=== PATIENT | male | born 1960 | race Caucasian/White ===

== ENCOUNTER 2019-08-18 20:19 | Emergency (ER) | payer MEDICAID ==
[~2019-08-18] VITALS: Ht 177.8 cm; Wt 90.9 kg
[~2019-08-18 20:19] MED LIST: ALBU18HF2 IH; ALLO100T PO; ASPI-1265 PO; CLON-528 PO; COL100C PO; CYCL-394 PO; DES150T PO; GABA-338 PO; GLIP-127 PO; LANTUS SQ; LISI-222 PO; METF1000 PO; METO-539 PO; MOME13HF IH; NITR0.4T51 SL; OLAN5TAB3 PO; OMEG500C PO; OMEP-84 PO; OXYC-147 PO; SUCR1ORA15 PO; TICA90TA2 PO; ZAFI10TA5 PO; ZOC40T PO; ZOF4T PO
--- NOTE | 2019-08-18 20:26 | NUR ---
PATIENTS CONTACT # KEILA LEE "COUSIN" PATIENT LIVES WITH COUSIN
[2019-08-18 21:01] LABS: BASOPHILS % (AUTO) 0.5 % (0-1); EOSINOPHILS % (AUTO) 0 % (0-6); HEMATOCRIT 43.6 % (42.0-52.0); HEMOGLOBIN 15.1 g/dl (14.0-17.9); LYMPHOCYTES # (AUTO) 1.4 X10'3 (1.1-4.8); LYMPHOCYTES % (AUTO) 18.7 % (21-51); MEAN CORPUSCULAR HEMOGLOBIN 28.7 PG (27.0-31.0); MEAN CORPUSCULAR HGB CONC 34.7 g/dL (33.0-36.5); MEAN CORPUSCULAR VOLUME 82.8 FL (78-98); MEAN PLATELET VOLUME 7.8 FL (7.4-10.4); MONOCYTES # (AUTO) 0.5 X10'3 (0-0.9); NEUTROPHILS # (AUTO) 5.7 X10'3 (1.8-7.7); NEUTROPHILS % (AUTO) 73.8 % (42-75); PLATELET COUNT 210 X10'3 (140-440); RED BLOOD COUNT 5.26 X10'6 (4.70-6.10); RED CELL DISTRIBUTION WIDTH 13.5 % (11.5-14.5); WHITE BLOOD COUNT 7.7 X10'3 (4.5-11.0)
[2019-08-18 21:11] LABS: ALANINE AMINOTRANSFERASE 28 U/L (12-78); ALBUMIN 3.8 G/DL (3.4-5.0); ALBUMIN/GLOBULIN RATIO 1.3 (1.1-1.5); ALKALINE PHOSPHATASE 79 IU/L (46-116); ANION GAP 11 (8-16); ASPARTATE AMINO TRANSFERASE 20 U/L (10-37); BILIRUBIN,TOTAL 0.4 MG/DL (0.1-1.0); BLOOD UREA NITROGEN 8 MG/DL (7-18); BUN/CREATININE RATIO 9.3 (5.4-32.0); CALCIUM 8.2 MG/DL (8.5-10.1); CHLORIDE 93 MMOL/L (99-107); CREATININE 0.86 MG/DL (0.60-1.10); GLUCOSE 185 MG/DL (70-104); POTASSIUM 4.1 MMOL/L (3.5-5.1); SODIUM 126 MMOL/L (135-145); TOTAL CARBON DIOXIDE 22.2 MMOL/L (24-32); TOTAL PROTEIN 6.8 G/DL (6.4-8.2); eGFR 90 ML/MIN
[2019-08-18 21:20] LABS: ETHANOL < 0.010 GM/DL (0.0-0.010)
[2019-08-18] MEDS ORDERED: normal saline 1000ML IV soln IVB ONE (21:20)
[2019-08-18] MEDS ORDERED: OLAN10TA21 PO (22:23)
[2019-08-18] MEDS ORDERED: METO-384 PO (22:28)
[2019-08-18] MEDS ORDERED: PANT-47 PO (22:29)
[2019-08-18] MEDS ORDERED: TRAZ-256 PO (22:29)
[2019-08-18] MEDS ORDERED: PRIM250T8 CORPAK ×2 (22:31→22:32)
[2019-08-18] MEDS ORDERED: PRIM50TA27 PO (22:32)
[2019-08-18 22:36] LABS: CLARITY,URINE CLEAR (Clear); COLOR,URINE YELLOW (Yellow); GLUCOSE, URINE 250 mg/dl (Neg); KETONES,URINE NEGATIVE (Neg); LEUKOCYTE ESTERASE ,URINE NEGATIVE (Neg); NITRITES, URINE NEGATIVE (Neg); OCCULT BLOOD,URINE NEGATIVE (Neg); PROTEIN,URINE NEGATIVE (Neg); UROBILINOGEN,URINE 0.2 E.U/dL (0.2-1.0)
[2019-08-18 22:41] LABS: UA COLLECTION TYPE CLN CATCH MIDSTREAM
[2019-08-18 22:44] LABS: URINE AMPHETAMINE SCREEN NEGATIVE (Neg); URINE BARBITUATE SCREEN POSITIVE (Neg); URINE BENZODIAZEPINES SCREEN NEGATIVE (Neg); URINE CANNABINOID SCREEN POSITIVE (Neg); URINE COCAINE SCREEN NEGATIVE (Neg); URINE METHADONE SCREEN NEGATIVE (Neg); URINE OPIATE SCREEN NEGATIVE (Neg); URINE PHENCYCLIDINE SCREEN NEGATIVE (Neg)
[2019-08-18] MEDS ORDERED: nitroGLYCERIN 0.4mg SUBLingual tab SL PRN (23:05)
[2019-08-18] MEDS ORDERED: cyclobenzaprine 10mg tablet PO PRN (23:05)
[2019-08-18] MEDS ORDERED: allopurinol 300 MG tablet PO SCH (23:19)
[2019-08-18] MEDS ORDERED: traZODone 50mg tablet PO SCH (23:20)
[2019-08-18] MEDS ORDERED: primidone 50mg tablet PO SCH (23:22)
[2019-08-18] MEDS ORDERED: Melatonin 3mg tablet PO ONE (23:25)
[2019-08-18] MEDS ORDERED: Melatonin 3mg tablet PO SCH (23:25)
[2019-08-18] MEDS ORDERED: metoprolol succinate 25mg (24-HOUR) SR. Tablet PO SCH (23:27)
[2019-08-18] MEDS ORDERED: olanzapine 10mg tablet PO SCH (23:29)
[2019-08-18] MEDS ORDERED: aspirin 81mg tab.chew PO ONE (23:35)
[2019-08-18] MEDS ORDERED: primidone 250mg tablet PO SCH (23:35)
[2019-08-18] MEDS ORDERED: metFORMIN 500mg tablet PO ONE (23:35)
[2019-08-18] MEDS ORDERED: atorvastatin 20mg tablet PO ONE (23:35)
[2019-08-18] MEDS ORDERED: lisinopril 5mg tablet PO ONE (23:35)
[2019-08-18] MEDS ORDERED: olanzapine 10mg tablet PO ONE (23:35)
[2019-08-18] MEDS ORDERED: gabapentin 300mg capsule PO ONE (23:35)
[2019-08-18] MEDS ORDERED: pantoprazole 40mg Tablet.DR PO ONE (23:35)
[2019-08-18] MEDS ORDERED: loratadine 10mg tablet PO ONE (23:35)
--- NOTE | 2019-08-19 00:27 | NUR ---
relieving RN for break, pt is resting quietly on gurney, resp even and unlabored
[2019-08-19] MEDS ORDERED: mag hydrox/Alum hydrox/simeth 30ml oral suspension PO ONE (00:55)
--- NOTE | 2019-08-19 01:26 | NUR ---
pt is lying in bed awake, somewhat restless. no s/s of distress noted.
[2019-08-19 01:31] LABS: ALBUMIN 3.7 G/DL (3.4-5.0); ANION GAP 7 (8-16); BLOOD UREA NITROGEN 8 MG/DL (7-18); BUN/CREATININE RATIO 10.5 (5.4-32.0); CALCIUM 8.4 MG/DL (8.5-10.1); CHLORIDE 97 MMOL/L (99-107); CREATININE 0.76 MG/DL (0.60-1.10); GLUCOSE 151 MG/DL (70-104); SODIUM 130 MMOL/L (135-145); TOTAL CARBON DIOXIDE 25.8 MMOL/L (24-32); eGFR > 90 ML/MIN
--- NOTE | 2019-08-19 02:27 | NUR ---
Pt is sleeping, no s/s of distress noted. rr unlabored.
[2019-08-19] MEDS ORDERED: albuterol 2.5 MG/3 ML nebule NEB SCH (03:00)
--- NOTE | 2019-08-19 03:41 | NUR ---
Pt is sleeping, no s/s of distress noted. rr unlabored.
--- NOTE | 2019-08-19 05:10 | NUR ---
Pt continues to sleep, rr unlabored, no s/s of distress noted.
--- NOTE | 2019-08-19 06:48 | NUR ---
back in bed
--- NOTE | 2019-08-19 07:04 | NUR ---
Patient sitting up in bed
[2019-08-19] MEDS ORDERED: metFORMIN 500mg tablet PO SCH (07:30)
[2019-08-19] MEDS ORDERED: loratadine 10mg tablet PO SCH (08:00)
[2019-08-19] MEDS ORDERED: pantoprazole 40mg Tablet.DR PO SCH (08:00)
[2019-08-19] MEDS ORDERED: lisinopril 5mg tablet PO SCH (08:00)
[2019-08-19] MEDS ORDERED: gabapentin 300mg capsule PO SCH (08:00)
--- NOTE | 2019-08-19 08:08 | NUR ---
sitting up eating breakfast
--- NOTE | 2019-08-19 08:18 | NUR ---
done using restroom, talking to county worker now
[2019-08-19] MEDS ORDERED: aspirin 81mg tab.chew PO SCH (08:30)
--- NOTE | 2019-08-19 08:54 | NUR ---
getting dressed and ready to leave has been DC'd by [facility] worker, IV taken out by break nurse
[2019-08-19] MEDS ORDERED: OLANZapine 2.5MG tablet PO ONE (09:00)
[2019-08-19 09:15] VITALS: BP 125/65
[2019-08-19] MEDS ORDERED: atorvastatin 20mg tablet PO SCH (21:00)
== END 2019-08-19 09:19 | disposition home or self-care (01) ==
LOC: ER 20:20
DX: F31.9 Bipolar disorder, unspecified (principal); E87.1 Hypo-osmolality and hyponatremia; R45.851 Suicidal ideations; I25.10 Atherosclerotic heart disease of native coronary artery without angina pectoris; E78.00 Pure hypercholesterolemia, unspecified; I10 Essential (primary) hypertension; I25.2 Old myocardial infarction; J45.909 Unspecified asthma, uncomplicated; K21.9 Gastro-esophageal reflux disease without esophagitis; F41.9 Anxiety disorder, unspecified; E11.9 Type 2 diabetes mellitus without complications; M19.90 Unspecified osteoarthritis, unspecified site; G89.29 Other chronic pain; Z86.69 Personal history of other diseases of the nervous system and sense organs; Z86.2 Personal history of diseases of the blood and blood-forming organs and certain disorders involving the immune mechanism; Z98.61 Coronary angioplasty status; Z95.1 Presence of aortocoronary bypass graft; Z98.890 Other specified postprocedural states; Z87.442 Personal history of urinary calculi; Z56.0 Unemployment, unspecified; Z88.2 Allergy status to sulfonamides; Z88.8 Allergy status to other drugs, medicaments and biological substances; Z79.82 Long term (current) use of aspirin; Z79.84 Long term (current) use of oral hypoglycemic drugs; Z79.899 Other long term (current) drug therapy
CPT/HCPCS: 36415; 80048; 80053; 80305; 80320; 81003; 84443; 85025; 99284; J7030

== ENCOUNTER 2021-07-12 10:58 | Emergency (ER) | payer MEDICAID ==
[~2021-07-12] VITALS: Ht 177.8 cm; Wt 100.0 kg
[~2021-07-12 10:58] MED LIST changes: -CLON-528 PO; -COL100C PO; -DES150T PO; -GLIP-127 PO; -LANTUS SQ; +METO-384 PO; -METO-539 PO; -MOME13HF IH; +OLAN10TA21 PO; -OLAN5TAB3 PO; -OMEG500C PO; -OMEP-84 PO; -OXYC-147 PO; +PANT-47 PO; +PRIM250T8 CORPAK; +PRIM50TA27 PO; -SUCR1ORA15 PO; -TICA90TA2 PO; +TRAZ-256 PO; -ZOF4T PO
[2021-07-12 11:42] LABS: BASOPHILS % (AUTO) 0.6 % (0-1); EOSINOPHILS % (AUTO) 0.1 % (0-6); HEMATOCRIT 45.7 % (42.0-52.0); HEMOGLOBIN 15.5 g/dl (14.0-17.9); LYMPHOCYTES # (AUTO) 1.5 X10'3 (1.1-4.8); LYMPHOCYTES % (AUTO) 21.8 % (21-51); MEAN CORPUSCULAR HEMOGLOBIN 28.9 PG (27.0-31.0); MEAN CORPUSCULAR VOLUME 84.8 FL (78-98); MEAN PLATELET VOLUME 7.6 FL (7.4-10.4); MONOCYTES # (AUTO) 0.5 X10'3 (0-0.9); MONOCYTES % (AUTO) 7.9 % (2-12); NEUTROPHILS # (AUTO) 4.6 X10'3 (1.8-7.7); NEUTROPHILS % (AUTO) 69.6 % (42-75); PLATELET COUNT 237 X10'3 (140-440); RED BLOOD COUNT 5.38 X10'6 (4.70-6.10); RED CELL DISTRIBUTION WIDTH 14.7 % (11.5-14.5); WHITE BLOOD COUNT 6.6 X10'3 (4.5-11.0)
[2021-07-12 11:57] LABS: ALANINE AMINOTRANSFERASE 29 U/L (12-78); ALBUMIN/GLOBULIN RATIO 1.2 (1.1-1.5); ALKALINE PHOSPHATASE 87 IU/L (46-116); ANION GAP 13 (8-16); ASPARTATE AMINO TRANSFERASE 13 U/L (10-37); BILIRUBIN,TOTAL 0.4 MG/DL (0.1-1.0); BLOOD UREA NITROGEN 9 MG/DL (7-18); BUN/CREATININE RATIO 10.7 (5.4-32.0); CALCIUM 8.9 MG/DL (8.5-10.1); CHLORIDE 97 MMOL/L (99-107); CREATININE 0.84 MG/DL (0.60-1.10); GLUCOSE 162 MG/DL (70-104); POTASSIUM 4.3 MMOL/L (3.5-5.1); SODIUM 134 MMOL/L (135-145); TOTAL CARBON DIOXIDE 24.5 MMOL/L (24-32); TOTAL PROTEIN 7.4 G/DL (6.4-8.2); eGFR > 90 ML/MIN
--- NOTE | 2021-07-12 12:50 | NUR ---
gait test completed and successful. nodizziness or difficulty walking
[2021-07-12 13:03] VITALS: BP 142/82
== END 2021-07-12 13:04 | disposition home or self-care (01) ==
LOC: ER 10:59
DX: F41.9 Anxiety disorder, unspecified (principal); G83.9 Paralytic syndrome, unspecified; G58.8 Other specified mononeuropathies; I11.9 Hypertensive heart disease without heart failure; E78.00 Pure hypercholesterolemia, unspecified; I10 Essential (primary) hypertension; J45.909 Unspecified asthma, uncomplicated; E11.9 Type 2 diabetes mellitus without complications; F31.9 Bipolar disorder, unspecified; Z88.2 Allergy status to sulfonamides; Z79.899 Other long term (current) drug therapy
CPT/HCPCS: 36415; 70450; 71045; 80053; 83880; 84484; 85025; 86885; 86900; 86901; 93005; 99285

== ENCOUNTER 2022-02-09 02:03 | Inpatient (IN) | payer MEDICAID ==
[~2022-02-09] VITALS: Ht 180.3 cm; Wt 99.1 kg
[~2022-02-09 02:03] MED LIST changes: -PRIM250T8 CORPAK; +PRIM250T8 PO
[2022-02-09 03:39] LABS: BASOPHILS % (AUTO) 0.6 % (0-1); EOSINOPHILS % (AUTO) 0.4 % (0-6); HEMATOCRIT 42.6 % (42.0-52.0); HEMOGLOBIN 14.8 g/dl (14.0-17.9); LYMPHOCYTES # (AUTO) 1.6 X10'3 (1.1-4.8); LYMPHOCYTES % (AUTO) 26.7 % (21-51); MEAN CORPUSCULAR HEMOGLOBIN 28.6 PG (27.0-31.0); MEAN CORPUSCULAR HGB CONC 34.6 g/dL (33.0-36.5); MEAN CORPUSCULAR VOLUME 82.6 FL (78-98); MEAN PLATELET VOLUME 8.1 FL (7.4-10.4); MONOCYTES # (AUTO) 0.5 X10'3 (0-0.9); MONOCYTES % (AUTO) 8.6 % (2-12); NEUTROPHILS # (AUTO) 3.9 X10'3 (1.8-7.7); NEUTROPHILS % (AUTO) 63.7 % (42-75); PLATELET COUNT 209 X10'3 (140-440); RED BLOOD COUNT 5.16 X10'6 (4.70-6.10); WHITE BLOOD COUNT 6.1 X10'3 (4.5-11.0)
[2022-02-09 03:54] LABS: ALANINE AMINOTRANSFERASE 26 U/L (12-78); ALBUMIN 3.5 G/DL (3.4-5.0); ALBUMIN/GLOBULIN RATIO 1.1 (1.1-1.5); ALKALINE PHOSPHATASE 93 IU/L (46-116); ANION GAP 10 (8-16); ASPARTATE AMINO TRANSFERASE 17 U/L (10-37); BILIRUBIN,TOTAL 0.2 MG/DL (0.1-1.0); BLOOD UREA NITROGEN 14 MG/DL (7-18); BUN/CREATININE RATIO 18.4 (5.4-32.0); CHLORIDE 103 MMOL/L (99-107); CREATININE 0.76 MG/DL (0.60-1.10); GLUCOSE 185 MG/DL (70-104); POTASSIUM 4.1 MMOL/L (3.5-5.1); SODIUM 137 MMOL/L (135-145); TOTAL CARBON DIOXIDE 24.5 MMOL/L (24-32); TOTAL PROTEIN 6.6 G/DL (6.4-8.2); eGFR > 90 ML/MIN
[2022-02-09] MEDS ORDERED: iohexol 350MG/ML 100ml bottle IV ONE (03:54)
[2022-02-09] MEDS ORDERED: potassium Cl 20 mEq SR tablet PO PRN ×2 (04:50)
[2022-02-09] MEDS ORDERED: potassium Cl 40MEQ/1/2NS 520ml 520 ML IV PRN (04:50)
[2022-02-09] MEDS ORDERED: magnesium 4gm in 100ml NS 100 ML IV PRN (04:50)
[2022-02-09] MEDS ORDERED: ondansetron/PF 4mg/2ml inj IV PRN (04:50)
[2022-02-09] MEDS ORDERED: pantoprazole 40mg IV 80 MG in normal saline 100ml IV soln 100 ML IV SCH (04:50)
[2022-02-09] MEDS ORDERED: acetaminophen 325mg tablet PO PRN ×2 (04:50)
[2022-02-09] MEDS ORDERED: magnesium Cl slow-release 64mg tablet PO PRN (04:50)
[2022-02-09] MEDS ORDERED: morphine 2 MG/ML inj. syringe IV PRN (04:50)
[2022-02-09] MEDS ORDERED: HYDROcodone/acetaminophen 5mg/325mg tablet PO PRN (04:50)
[2022-02-09] MEDS ORDERED: MESSAGE TO PHARMACY PO ONE (05:35)
[2022-02-09] MEDS ORDERED: glucagon, human recombinant 1mg kit SUBCUT PRN (05:35)
[2022-02-09] MEDS ORDERED: DEXTROSE 15 GM of carb/4 tabs (each vial/BOTTLE has 4 tablets) PO PRN ×2 (05:35)
[2022-02-09] MEDS ORDERED: dextrose 50%-water 50ml dispensing syringe IV PRN ×2 (05:35)
[2022-02-09] MEDS ORDERED: insulin Lispro (HumaLOG) vial - multi-dose SQ SCH (05:35)
[2022-02-09] MEDS: normal saline 1000ml 1,000 ML IV SCH ×2 (06:40→16:37)
[2022-02-09] MEDS ORDERED: METF-517 PO (06:55)
[2022-02-09] MEDS ORDERED: LOSA25TA41 PO (06:55)
[2022-02-09] MEDS ORDERED: TRAZ150T78 PO (06:55)
[2022-02-09] MEDS ORDERED: ISOS30TA84 PO (07:02)
[2022-02-09] MEDS ORDERED: DONE23TA7 PO (07:02)
[2022-02-09] MEDS ORDERED: pantoprazole 40mg IV 80 MG in normal saline 100ml IV soln 100 ML IV ONE (07:40)
--- NOTE | 2022-02-09 07:52 | NUR ---
PTS COUSIN (FLORINA LEE) CALLED AND INQUIRED ON PT STATUS. PT GAVE VERBAL CONSENT TO GIVE UPDATE. FLORINA RAMIREZ CONTACT NUMBERS FLORINA LEE: SORAYA LEE:
[2022-02-09] MEDS ORDERED: pantoprazole 40MG/NS 100ML BAG 100 ML IV SCH ×2 (08:00→14:00)
[2022-02-09] MEDS: K and/or MAG REPLACEMENT MC SCH ×2 (08:00→20:00)
[2022-02-09] MEDS ORDERED: cyclobenzaprine 10mg tablet PO PRN (08:25)
[2022-02-09] MEDS: OLANZAPINE 5 MG TABLET PO SCH ×2 (09:31→20:35)
[2022-02-09 11:30] LABS: HEMATOCRIT 38.6 % (42.0-52.0); HEMOGLOBIN 13.4 g/dl (14.0-17.9); MEAN CORPUSCULAR HEMOGLOBIN 28.8 PG (27.0-31.0); MEAN CORPUSCULAR HGB CONC 34.9 g/dL (33.0-36.5); MEAN CORPUSCULAR VOLUME 82.5 FL (78-98); MEAN PLATELET VOLUME 7.9 FL (7.4-10.4); PLATELET COUNT 203 X10'3 (140-440); RED BLOOD COUNT 4.68 X10'6 (4.70-6.10); RED CELL DISTRIBUTION WIDTH 14.1 % (11.5-14.5); WHITE BLOOD COUNT 6.1 X10'3 (4.5-11.0)
--- NOTE | 2022-02-09 16:00 | NUR ---
Patient in room [facility]. I have received report from PRASANNA DAS ED TRAVELER and had the opportunity to ask questions and assume patient care.
[2022-02-09 16:05] VITALS: BP 145/84
[2022-02-09 16:21] LABS: HEMATOCRIT 36.1 % (42.0-52.0); HEMOGLOBIN 12.6 g/dl (14.0-17.9); MEAN CORPUSCULAR HEMOGLOBIN 28.6 PG (27.0-31.0); MEAN CORPUSCULAR HGB CONC 34.8 g/dL (33.0-36.5); MEAN CORPUSCULAR VOLUME 82.2 FL (78-98); PLATELET COUNT 197 X10'3 (140-440); RED BLOOD COUNT 4.39 X10'6 (4.70-6.10); RED CELL DISTRIBUTION WIDTH 13.9 % (11.5-14.5); WHITE BLOOD COUNT 5.3 X10'3 (4.5-11.0)
--- NOTE | 2022-02-09 16:35 | NUR ---
PT A & O X4. PT ARRIVED TO THE FLOOR VIA GURNEY. PT ABLE TO WALK HIMSELF TO THE BED. PT HAS NS FLUIDS RUNNING. IV BILATERAL FOREARM. PT IN NO APPARENT DISTRESS. PT'S FLUIDS OUT. BAG CHANGED. PT IS NPO UNTIL FURTHER NOTICE. PALE IN APPEARANCE. NO BLOODY STOOL SINCE THIS AM. PER ED NURSE PRASANNA DAS.
[2022-02-09 18:00] VITALS: BP 145/84
--- NOTE | 2022-02-09 19:03 | NUR ---
Problems reprioritized. Patient report given, questions answered & plan of care reviewed with RACH DAS .
[2022-02-09] MEDS ORDERED: pantoprazole 80 MG in NS 100ml IV soln IV SCH (20:00)
[2022-02-09] MEDS: pantoprazole 40MG/NS 100ML BAG 100 ML IV SCH (20:27)
--- NOTE | 2022-02-09 20:45 | NUR ---
IT COMES FROM THE PHARMACY. WE CAN BRING IT UP [address] [facility] [address] OR YOU CAN COME DOWN TO [facility] IF NEEDED EARLIER. THANKS. ELVIA SALVADOR On SAT 8:48pm 02/09/22 Nursing (Elyse Melvin) wrote primidone tab not available in his pt specific bin..... thanks Elyse. Addendum: 02/09/22 at 2217 by Elyse Melvin RN Amended: Links added.
[2022-02-09 20:50] LABS: HEMATOCRIT 35.5 % (42.0-52.0); HEMOGLOBIN 12.3 g/dl (14.0-17.9); MEAN CORPUSCULAR HEMOGLOBIN 28.8 PG (27.0-31.0); MEAN CORPUSCULAR HGB CONC 34.7 g/dL (33.0-36.5); MEAN PLATELET VOLUME 7.8 FL (7.4-10.4); PLATELET COUNT 205 X10'3 (140-440); RED BLOOD COUNT 4.28 X10'6 (4.70-6.10); RED CELL DISTRIBUTION WIDTH 13.7 % (11.5-14.5); WHITE BLOOD COUNT 4.9 X10'3 (4.5-11.0)
[2022-02-09] MEDS ORDERED: primidone 250mg tablet PO SCH (21:00)
[2022-02-09] MEDS ORDERED: insulin glargine (Lantus) pen - multi-dose SQ SCH (21:00)
[2022-02-09] MEDS ORDERED: atorvastatin 20mg tablet PO SCH (21:00)
[2022-02-09] MEDS ORDERED: donepezil 5mg tablet PO SCH (21:00)
[2022-02-09] MEDS ORDERED: non-formulary drug (Olanzapine 1 TAB) PO SCH (21:00)
[2022-02-09] MEDS ORDERED: traZODone 150mg tablet PO SCH (21:00)
[2022-02-09] MEDS ORDERED: temazepam 15mg capsule PO PRN (21:00)
[2022-02-09] MEDS ORDERED: allopurinol 100mg tablet PO SCH (21:00)
--- NOTE | 2022-02-09 21:25 | NUR ---
Pts blood sugar 174, which qualifies him now for our diabetic protocol. He stated that if he gets insulin and is not able to eat(is NPO) his blood sugar will drop to low. Pt has refused insulin for tonight. Addendum: 02/09/22 at 2136 by Elyse Melvin RN Amended: Links added.
[2022-02-09 22:00] VITALS: BP 132/81
[2022-02-10] MEDS: normal saline 1000ml 1,000 ML IV SCH ×3 (02:36→12:09)
[2022-02-10 06:00] VITALS: BP 154/77
[2022-02-10 06:36] LABS: BASOPHILS % (AUTO) 0.5 % (0-1); EOSINOPHILS % (AUTO) 0.3 % (0-6); HEMATOCRIT 33.5 % (42.0-52.0); HEMOGLOBIN 11.7 g/dl (14.0-17.9); LYMPHOCYTES # (AUTO) 1.6 X10'3 (1.1-4.8); LYMPHOCYTES % (AUTO) 31.5 % (21-51); MEAN CORPUSCULAR HGB CONC 34.9 g/dL (33.0-36.5); MEAN PLATELET VOLUME 8.5 FL (7.4-10.4); MONOCYTES # (AUTO) 0.4 X10'3 (0-0.9); NEUTROPHILS % (AUTO) 59.7 % (42-75); PLATELET COUNT 168 X10'3 (140-440); RED BLOOD COUNT 4.04 X10'6 (4.70-6.10); RED CELL DISTRIBUTION WIDTH 14.1 % (11.5-14.5)
--- NOTE | 2022-02-10 06:48 | NUR ---
Problems reprioritized. Patient report given, questions answered & plan of care reviewed with Diane Lozano RN. Addendum: 02/10/22 at 0648 by Elyse Melvin RN Amended: Links added.
[2022-02-10 06:55] LABS: ALANINE AMINOTRANSFERASE 27 U/L (12-78); ALBUMIN/GLOBULIN RATIO 1.3 (1.1-1.5); ALKALINE PHOSPHATASE 76 IU/L (46-116); ANION GAP 7 (8-16); ASPARTATE AMINO TRANSFERASE 20 U/L (10-37); BILIRUBIN,TOTAL 0.3 MG/DL (0.1-1.0); BLOOD UREA NITROGEN 10 MG/DL (7-18); BUN/CREATININE RATIO 12.8 (5.4-32.0); CALCIUM 8.1 MG/DL (8.5-10.1); CHLORIDE 108 MMOL/L (99-107); CREATININE 0.78 MG/DL (0.60-1.10); GLUCOSE 147 MG/DL (70-104); MAGNESIUM 1.8 MG/DL (1.5-2.4); PHOSPHORUS 3.3 MG/DL (2.3-4.5); SODIUM 141 MMOL/L (135-145); TOTAL CARBON DIOXIDE 25.6 MMOL/L (24-32); TOTAL PROTEIN 5.4 G/DL (6.4-8.2); eGFR > 90 ML/MIN
[2022-02-10] MEDS ORDERED: losartan 25mg tablet PO SCH (08:00)
[2022-02-10] MEDS ORDERED: pantoprazole 40mg Tablet.DR PO SCH (08:00)
[2022-02-10] MEDS ORDERED: isosorbide mononitrate 30mg tab.SR.24H PO SCH (08:00)
[2022-02-10] MEDS: K and/or MAG REPLACEMENT MC SCH (08:00)
[2022-02-10] MEDS: pantoprazole 40MG/NS 100ML BAG 100 ML IV SCH (08:57)
--- NOTE | 2022-02-10 09:12 | NUR ---
Message: Diane Surg [phone] Re: Juarez BurroughsA patient would like to know if he can at least have clear diet
[2022-02-10 10:00] VITALS: BP 123/73
[2022-02-10 11:07] LABS: BASOPHILS % (AUTO) 0.5 % (0-1); EOSINOPHILS % (AUTO) 0 % (0-6); HEMATOCRIT 32.5 % (42.0-52.0); HEMOGLOBIN 11.3 g/dl (14.0-17.9); LYMPHOCYTES # (AUTO) 1.6 X10'3 (1.1-4.8); LYMPHOCYTES % (AUTO) 25.3 % (21-51); MEAN CORPUSCULAR HEMOGLOBIN 28.8 PG (27.0-31.0); MEAN CORPUSCULAR HGB CONC 34.6 g/dL (33.0-36.5); MEAN CORPUSCULAR VOLUME 83.3 FL (78-98); MEAN PLATELET VOLUME 7.7 FL (7.4-10.4); MONOCYTES # (AUTO) 0.5 X10'3 (0-0.9); MONOCYTES % (AUTO) 7.2 % (2-12); NEUTROPHILS # (AUTO) 4.4 X10'3 (1.8-7.7); PLATELET COUNT 194 X10'3 (140-440); RED BLOOD COUNT 3.91 X10'6 (4.70-6.10); RED CELL DISTRIBUTION WIDTH 13.9 % (11.5-14.5); WHITE BLOOD COUNT 6.5 X10'3 (4.5-11.0)
--- NOTE | 2022-02-10 12:20 | NUR ---
Message: Diane Surg [phone] Re: Juarez BurroughsA can patient have a diet?
--- NOTE | 2022-02-10 14:50 | NUR ---
Patient discharge instructions reviewed with patient and patient verbalized understanding. Patients IV dc'd x2 cannula intact. Patient was taken to lobby where his ride was waiting for her. Patient states he has all his belongings.
== END 2022-02-10 15:19 | disposition home or self-care (01) | DRG 254 ==
LOC: ER 02:03 → ED HOLD 04:51 → SUR 3N 16:08
PROVIDERS: ADMIT Internal Medicine; ATTEND Family Medicine
PROC: B4201ZZ Computerized Tomography (CT Scan) of Abdominal Aorta using Low Osmolar Contrast (ICD-10-PCS; principal; 2022-02-09)
PROC: B4241ZZ Computerized Tomography (CT Scan) of Superior Mesenteric Artery using Low Osmolar Contrast (ICD-10-PCS; 2022-02-09)
PROC: B4281ZZ Computerized Tomography (CT Scan) of Bilateral Renal Arteries using Low Osmolar Contrast (ICD-10-PCS; 2022-02-09)
PROC: B42C1ZZ Computerized Tomography (CT Scan) of Pelvic Arteries using Low Osmolar Contrast (ICD-10-PCS; 2022-02-09)
PROC: B42H1ZZ Computerized Tomography (CT Scan) of Bilateral Lower Extremity Arteries using Low Osmolar Contrast (ICD-10-PCS; 2022-02-09)
PROC: B4211ZZ Computerized Tomography (CT Scan) of Celiac Artery using Low Osmolar Contrast (ICD-10-PCS; 2022-02-09)
DX: K92.1 Melena (principal); E11.9 Type 2 diabetes mellitus without complications; E78.00 Pure hypercholesterolemia, unspecified; F31.9 Bipolar disorder, unspecified; I10 Essential (primary) hypertension; G89.29 Other chronic pain; K21.9 Gastro-esophageal reflux disease without esophagitis; M19.90 Unspecified osteoarthritis, unspecified site; M54.9 Dorsalgia, unspecified; J45.909 Unspecified asthma, uncomplicated; I25.10 Atherosclerotic heart disease of native coronary artery without angina pectoris; I25.2 Old myocardial infarction; Z79.82 Long term (current) use of aspirin; Z86.73 Personal history of transient ischemic attack (TIA), and cerebral infarction without residual deficits; Z87.11 Personal history of peptic ulcer disease; Z87.442 Personal history of urinary calculi; Z95.1 Presence of aortocoronary bypass graft; Z56.0 Unemployment, unspecified; Z88.2 Allergy status to sulfonamides; Z88.8 Allergy status to other drugs, medicaments and biological substances; Z82.3 Family history of stroke; Z83.3 Family history of diabetes mellitus; Z82.49 Family history of ischemic heart disease and other diseases of the circulatory system
CPT/HCPCS: 36415; 74175; 80053; 82948; 83605; 83735; 84100; 85025; 85027; 85610; 87040; 97161; 97530; 99285; C9113; G0378; J1815; J2270; J3490; J7030; Q9967

== ENCOUNTER 2022-05-02 09:56 | Inpatient (IN) | payer MEDICAID, SELFPAY ==
[~2022-05-02] VITALS: Ht 177.8 cm; Wt 96.8 kg
[~2022-05-02 09:56] MED LIST changes: -ALBU18HF2 IH; +DONE23TA7 PO; -GABA-338 PO; +ISOS30TA84 PO; -LISI-222 PO; +LOSA25TA41 PO; +METF-517 PO; -METF1000 PO; -METO-384 PO; -NITR0.4T51 SL; -PRIM50TA27 PO; -TRAZ-256 PO; +TRAZ150T78 PO; -ZAFI10TA5 PO
[2022-05-02 10:26] LABS: BASOPHILS # (AUTO) 0.1 X10'3 (0-0.2); BASOPHILS % (AUTO) 1.1 % (0-1); EOSINOPHILS % (AUTO) 0.2 % (0-6); HEMATOCRIT 40.4 % (42.0-52.0); HEMOGLOBIN 12.9 g/dl (14.0-17.9); LYMPHOCYTES # (AUTO) 1.9 X10'3 (1.1-4.8); LYMPHOCYTES % (AUTO) 28.1 % (21-51); MEAN CORPUSCULAR HEMOGLOBIN 24.1 PG (27.0-31.0); MEAN CORPUSCULAR HGB CONC 31.9 g/dL (33.0-36.5); MEAN CORPUSCULAR VOLUME 75.4 FL (78-98); MEAN PLATELET VOLUME 8.1 FL (7.4-10.4); MONOCYTES # (AUTO) 0.6 X10'3 (0-0.9); MONOCYTES % (AUTO) 8.3 % (2-12); NEUTROPHILS # (AUTO) 4.3 X10'3 (1.8-7.7); NEUTROPHILS % (AUTO) 62.3 % (42-75); PLATELET COUNT 231 X10'3 (140-440); RED BLOOD COUNT 5.35 X10'6 (4.70-6.10); RED CELL DISTRIBUTION WIDTH 15.6 % (11.5-14.5); WHITE BLOOD COUNT 6.9 X10'3 (4.5-11.0)
[2022-05-02 10:57] LABS: ALANINE AMINOTRANSFERASE 26 U/L (12-78); ALBUMIN 3.3 G/DL (3.4-5.0); ALBUMIN/GLOBULIN RATIO 1.1 (1.1-1.5); ALKALINE PHOSPHATASE 92 IU/L (46-116); ANION GAP 11 (8-16); ASPARTATE AMINO TRANSFERASE 16 U/L (10-37); BILIRUBIN,TOTAL 0.3 MG/DL (0.1-1.0); BLOOD UREA NITROGEN 11 MG/DL (7-18); CALCIUM 8.3 MG/DL (8.5-10.1); CHLORIDE 99 MMOL/L (99-107); GLUCOSE 317 MG/DL (70-104); MAGNESIUM 1.8 MG/DL (1.5-2.4); POTASSIUM 4.4 MMOL/L (3.5-5.1); SODIUM 133 MMOL/L (135-145); TOTAL PROTEIN 6.4 G/DL (6.4-8.2); eGFR 75 ML/MIN
[2022-05-02] MEDS ORDERED: iohexol 350MG/ML 100ml bottle IV ONE (12:57)
[2022-05-02 13:08] LABS: APTT 27 SECONDS (22-32)
[2022-05-02 13:33] LABS: BASOPHILS # (AUTO) 0.1 X10'3 (0-0.2); BASOPHILS % (AUTO) 0.9 % (0-1); EOSINOPHILS % (AUTO) 0.1 % (0-6); HEMATOCRIT 37.2 % (42.0-52.0); HEMOGLOBIN 11.7 g/dl (14.0-17.9); LYMPHOCYTES # (AUTO) 1.2 X10'3 (1.1-4.8); LYMPHOCYTES % (AUTO) 22.1 % (21-51); MEAN CORPUSCULAR HEMOGLOBIN 23.6 PG (27.0-31.0); MEAN CORPUSCULAR HGB CONC 31.4 g/dL (33.0-36.5); MEAN CORPUSCULAR VOLUME 75.2 FL (78-98); MEAN PLATELET VOLUME 7.6 FL (7.4-10.4); MONOCYTES # (AUTO) 0.5 X10'3 (0-0.9); MONOCYTES % (AUTO) 9.4 % (2-12); NEUTROPHILS # (AUTO) 3.8 X10'3 (1.8-7.7); NEUTROPHILS % (AUTO) 67.5 % (42-75); PLATELET COUNT 228 X10'3 (140-440); RED BLOOD COUNT 4.95 X10'6 (4.70-6.10); RED CELL DISTRIBUTION WIDTH 15.8 % (11.5-14.5); WHITE BLOOD COUNT 5.6 X10'3 (4.5-11.0)
[2022-05-02] MEDS: MESSAGE TO NURSING PO NR (14:07)
[2022-05-02] MEDS ORDERED: atropine 1 MG/1 ML vial IV ONE (14:55)
[2022-05-02] MEDS ORDERED: atropine 0.1mg/ml 10ml syringe IV ONE (15:05)
--- NOTE | 2022-05-02 15:20 | NUR ---
ATROPINE 0.5MG ADMINISTERED WITH DR. PETERS AT BEDSIDE.
--- NOTE | 2022-05-02 15:30 | NUR ---
PT CONITINUES TO REMAIN WITH CO OF DIZZINESS AFTER ATROPINE ADMINISTRATION.
[2022-05-02] MEDS ORDERED: PANT-47 PO (15:31)
[2022-05-02] MEDS ORDERED: ASPI-611 PO (15:31)
[2022-05-02] MEDS ORDERED: CYCL-394 PO (15:31)
[2022-05-02] MEDS ORDERED: PRIM250T8 PO (15:31)
[2022-05-02] MEDS ORDERED: LOSA25TA41 PO (15:31)
[2022-05-02] MEDS ORDERED: SIMV-45 PO (15:36)
[2022-05-02] MEDS ORDERED: LIRA0.6P2 SQ (15:36)
[2022-05-02] MEDS ORDERED: GABA600T13 PO (15:36)
[2022-05-02] MEDS ORDERED: METF-517 PO (15:36)
[2022-05-02] MEDS ORDERED: ALLO300T8 PO (15:36)
[2022-05-02] MEDS ORDERED: TRAZ150T78 PO (15:36)
[2022-05-02] MEDS ORDERED: METO-384 PO (15:36)
[2022-05-02] MEDS ORDERED: OLAN5TAB75 PO (15:36)
[2022-05-02] MEDS ORDERED: QUET25TA36 PO (15:48)
--- NOTE | 2022-05-02 16:05 | NUR ---
PT BEING TAKEN TO MRI
[2022-05-02] MEDS ORDERED: magnesium hydroxide 30ml (MOM) UD suspension PO PRN (17:15)
[2022-05-02] MEDS ORDERED: PERFLUTREN PROTEIN-A MICROSPHR (Optison) 0.22 MG/ML 3ML VIAL IV ONE (17:15)
[2022-05-02] MEDS ORDERED: potassium Cl 20 mEq SR tablet PO PRN ×2 (17:15)
[2022-05-02] MEDS ORDERED: ondansetron/PF 4mg/2ml inj IV PRN (17:15)
[2022-05-02] MEDS ORDERED: magnesium 4gm in 100ml NS 100 ML IV PRN (17:15)
[2022-05-02] MEDS ORDERED: acetaminophen 325mg tablet PO PRN (17:15)
[2022-05-02] MEDS ORDERED: potassium Cl 40MEQ/1/2NS 520ml 520 ML IV PRN (17:15)
[2022-05-02] MEDS ORDERED: magnesium Cl slow-release 64mg tablet PO PRN (17:15)
[2022-05-02] MEDS ORDERED: mag hydrox/Alum hydrox/simeth 30ml oral suspension PO PRN (17:15)
[2022-05-02] MEDS ORDERED: cyclobenzaprine 10mg tablet PO PRN (17:20)
[2022-05-02] MEDS ORDERED: glucagon, human recombinant 1mg kit SUBCUT PRN (17:20)
[2022-05-02] MEDS ORDERED: DEXTROSE 15 GM of carb/4 tabs (each vial/BOTTLE has 4 tablets) PO PRN ×2 (17:20)
[2022-05-02] MEDS ORDERED: dextrose 50%-water 50ml dispensing syringe IV PRN ×2 (17:20)
[2022-05-02] MEDS ORDERED: MESSAGE TO PHARMACY PO ONE (17:20)
--- NOTE | 2022-05-02 19:45 | NUR ---
I agree with A Cisco Mcclain assessment.
[2022-05-02] MEDS: K and/or MAG REPLACEMENT MC SCH (20:00)
[2022-05-02] MEDS: docusate sod 100mg capsule PO SCH (20:00)
[2022-05-02 20:33] LABS: CLARITY,URINE CLEAR (Clear); COLOR,URINE YELLOW (Yellow); GLUCOSE, URINE 500 mg/dl (Neg); KETONES,URINE NEGATIVE (Neg); LEUKOCYTE ESTERASE ,URINE NEGATIVE (Neg); NITRITES, URINE NEGATIVE (Neg); OCCULT BLOOD,URINE NEGATIVE (Neg); PROTEIN,URINE NEGATIVE (Neg); UROBILINOGEN,URINE 0.2 E.U/dL (0.2-1.0)
[2022-05-02 20:34] LABS: URINE AMPHETAMINE SCREEN NEGATIVE (Neg); URINE BARBITUATE SCREEN POSITIVE (Neg); URINE BENZODIAZEPINES SCREEN NEGATIVE (Neg); URINE CANNABINOID SCREEN NEGATIVE (Neg); URINE COCAINE SCREEN NEGATIVE (Neg); URINE METHADONE SCREEN NEGATIVE (Neg); URINE OPIATE SCREEN NEGATIVE (Neg); URINE PHENCYCLIDINE SCREEN NEGATIVE (Neg)
[2022-05-02 20:37] LABS: UA COLLECTION TYPE VOIDED
[2022-05-02] MEDS ORDERED: atorvastatin 20mg tablet PO SCH (21:00)
[2022-05-02] MEDS: heparin, porcine 5000 units/ml vial SQ SCH (22:01)
[2022-05-02] MEDS: QUEtiapine 25mg tablet PO SCH (22:02)
[2022-05-02] MEDS: traZODone 150mg tablet PO SCH (22:02)
[2022-05-02] MEDS: primidone 250mg tablet PO SCH (22:03)
--- NOTE | 2022-05-03 01:37 | NUR ---
I AGREE WITH COURTNEY GARCÍA GENERAL ASSESSMENT
[2022-05-03 04:49] LABS: MAGNESIUM 1.8 MG/DL (1.5-2.4)
[2022-05-03 04:55] LABS: POTASSIUM 4.2 MMOL/L (3.5-5.1)
[2022-05-03] MEDS: docusate sod 100mg capsule PO SCH ×2 (08:00→20:00)
[2022-05-03] MEDS: K and/or MAG REPLACEMENT MC SCH ×2 (08:14→20:00)
[2022-05-03] MEDS: pantoprazole 40mg Tablet.DR PO SCH (08:24)
[2022-05-03] MEDS: aspirin 81mg, enteric-coated 1 TAB TABLET.DR PO SCH (08:24)
[2022-05-03] MEDS: losartan 25mg tablet PO SCH (08:24)
[2022-05-03] MEDS: allopurinol 300 MG tablet PO SCH (08:24)
[2022-05-03] MEDS: heparin, porcine 5000 units/ml vial SQ SCH ×2 (08:25→23:22)
[2022-05-03] MEDS: OLANZAPINE 5 MG TABLET PO SCH (08:25)
[2022-05-03] MEDS: MESSAGE TO NURSING PO NR (10:05)
--- NOTE | 2022-05-03 10:08 | NUR ---
RN paged Dr. Urbina an update @ 2258: "WAYNEI BS 194 is INACCURATE (taken just after breakfast). Will document and reevaluate before lunch." Addendum: 05/03/22 at 1442 by NICO Before lunch, BS 263. RN covered BS per level 2 scale (both sliding scale and carb coverage).
[2022-05-03 11:10] LABS: HEMOGLOBIN A1C 8.8 % (4.5-6.2)
[2022-05-03] MEDS: insulin Lispro (HumaLOG) vial - multi-dose SQ SCH ×2 (12:34→19:38)
[2022-05-03] MEDS ORDERED: cyclobenzaprine 10mg tablet PO PRN (14:25)
--- NOTE | 2022-05-03 14:43 | NUR ---
RN performed neuro assessment: neuro assessment intact, except for baseline BUE tremors. Pt denies dizziness. VS WNL.
--- NOTE | 2022-05-03 15:04 | NUR ---
RN gave nurse report to THIAGO Braxton. Pt is stable. No changes. VS WNL. Will transfer shortly when receiving bed is clean.
--- NOTE | 2022-05-03 15:30 | NUR ---
Patient in room PCU 3015. I have received report from Caesar DAS and had the opportunity to ask questions and assume patient care.pt arrived to unit stable, a/ox3 no pain Addendum: 05/03/22 at 1717 by Karey West RN Amended: Links added.
[2022-05-03 16:04] LABS: CHOL/HDL RATIO 5.9 (0.00-4.99); CHOLESTEROL 160 MG/DL (0-200); HDL CHOLESTEROL 27 MG/DL (35-60); LDL CHOLESTEROL 103 MG/DL (50-100); TRIGLYCERIDES 187 MG/DL (20-135)
[2022-05-03] MEDS ORDERED: FLU VACC QS2022-23(6MOS UP)/PF 60 MCG/0.5 ML SYRINGE IMVAC ONE (17:25)
[2022-05-03] MEDS ORDERED: atorvastatin 20mg tablet PO SCH (21:00)
[2022-05-03] MEDS: primidone 250mg tablet PO SCH (21:00)
[2022-05-03] MEDS: QUEtiapine 25mg tablet PO SCH (23:24)
[2022-05-03] MEDS: traZODone 150mg tablet PO SCH (23:29)
[2022-05-04 06:00] VITALS: BP 120/65
--- NOTE | 2022-05-04 06:31 | NUR ---
Patient in room U 3015. I have received report from Annie DAS and had the opportunity to ask questions and assume patient care. Bedside report completed. Pt sleeping, No distress, Call light in reach. Addendum: 05/04/22 at 0633 by Cortney Martinez RN Amended: Links added.
[2022-05-04 07:30] LABS: MAGNESIUM 1.9 MG/DL (1.5-2.4); POTASSIUM 4.2 MMOL/L (3.5-5.1)
[2022-05-04] MEDS: aspirin 81mg, enteric-coated 1 TAB TABLET.DR PO SCH (07:45)
[2022-05-04] MEDS: OLANZAPINE 5 MG TABLET PO SCH (07:45)
[2022-05-04] MEDS: pantoprazole 40mg Tablet.DR PO SCH (07:45)
[2022-05-04] MEDS: losartan 25mg tablet PO SCH (07:46)
[2022-05-04] MEDS: allopurinol 300 MG tablet PO SCH (07:46)
[2022-05-04] MEDS: heparin, porcine 5000 units/ml vial SQ SCH (07:47)
[2022-05-04] MEDS: insulin Lispro (HumaLOG) vial - multi-dose SQ SCH ×2 (07:51→12:56)
[2022-05-04] MEDS: docusate sod 100mg capsule PO SCH (07:52)
[2022-05-04] MEDS: K and/or MAG REPLACEMENT MC SCH (08:00)
[2022-05-04] MEDS: MESSAGE TO NURSING PO NR (10:27)
[2022-05-04] MEDS ORDERED: FLU VACC QS2022-23(6MOS UP)/PF 60 MCG/0.5 ML SYRINGE IMVAC ONE (10:45)
[2022-05-04 11:30] VITALS: BP 132/63
--- NOTE | 2022-05-04 11:59 | NUR ---
Per EMR pt with T2DM, current A1c 8.8% which is stable with Ac hx in EMR. Pt seen at bedside for written and verbal DM education. Pt states he takes his medications per rx however sometimes forgets to take Victoza d/t dementia. Pt states he lives with his cousins and he's going to ask them to help him remember to take all his medications. Pt reports he previously had an A1c of 6.5 which went up to 7.1% following discontinuation of insulin. Pt denies questions at this time. RD encouraged pt to f/u with his physician regarding medication rx as pt inquiring about possible med adjustments. RD contact information provided and pt encouraged to reach out if needed. Pt endorses a good appetite, denies food allergies stating he thought he was allergic to mangos however he in fact isn't. Pt denies difficulty chewing/swallowing or constipation/diarrhea. Will continue to follow. Addendum: 05/04/22 at [address] Amended: Links added.
--- NOTE | 2022-05-04 12:12 | NUR ---
MESSAGE: [id number] Juarez. Cleared for D/C by Physical Therapy. Cortney KELSEY
[2022-05-04] MEDS ORDERED: METO-384 PO (12:21)
[2022-05-04] MEDS ORDERED: ATOR20TA66 PO (12:21)
[2022-05-04] MEDS ORDERED: CYCL-1 PO (12:21)
--- NOTE | 2022-05-04 14:15 | NUR ---
all written and verbal orders for d/c given. all questions answered. Pt stated he had all belongings including wallet, money and glasses. Pt home with cousin. Addendum: 05/04/22 at 1437 by Cortney Martinez RN Amended: Links added.
== END 2022-05-04 14:22 | disposition home or self-care (01) | DRG 45 ==
LOC: ER 09:56 → ED HOLD 17:17 → PCU 3S 05-03 15:52
PROVIDERS: ADMIT Internal Medicine; ATTEND Internal Medicine
PROC: B3251ZZ Computerized Tomography (CT Scan) of Bilateral Common Carotid Arteries using Low Osmolar Contrast (ICD-10-PCS; 2022-05-02)
PROC: B32G1ZZ Computerized Tomography (CT Scan) of Bilateral Vertebral Arteries using Low Osmolar Contrast (ICD-10-PCS; 2022-05-02)
PROC: B32R1ZZ Computerized Tomography (CT Scan) of Intracranial Arteries using Low Osmolar Contrast (ICD-10-PCS; 2022-05-02)
PROC: B3281ZZ Computerized Tomography (CT Scan) of Bilateral Internal Carotid Arteries using Low Osmolar Contrast (ICD-10-PCS; 2022-05-02)
PROC: 3E02340 Introduction of Influenza Vaccine into Muscle, Percutaneous Approach (ICD-10-PCS; principal; 2022-05-03)
DX: I63.9 Cerebral infarction, unspecified (principal); E11.42 Type 2 diabetes mellitus with diabetic polyneuropathy; I25.810 Atherosclerosis of coronary artery bypass graft(s) without angina pectoris; I25.82 Chronic total occlusion of coronary artery; E11.65 Type 2 diabetes mellitus with hyperglycemia; E66.9 Obesity, unspecified; E78.00 Pure hypercholesterolemia, unspecified; F31.9 Bipolar disorder, unspecified; R00.1 Bradycardia, unspecified; F41.9 Anxiety disorder, unspecified; G89.29 Other chronic pain; M54.9 Dorsalgia, unspecified; I10 Essential (primary) hypertension; R29.700 NIHSS score 0; G25.0 Essential tremor; T46.5X5A Adverse effect of other antihypertensive drugs, initial encounter; K21.9 Gastro-esophageal reflux disease without esophagitis; I25.10 Atherosclerotic heart disease of native coronary artery without angina pectoris; I25.2 Old myocardial infarction; Z79.899 Other long term (current) drug therapy; Z82.3 Family history of stroke; Z82.49 Family history of ischemic heart disease and other diseases of the circulatory system; Z23 Encounter for immunization; Z83.3 Family history of diabetes mellitus; Z85.820 Personal history of malignant melanoma of skin; Z86.73 Personal history of transient ischemic attack (TIA), and cerebral infarction without residual deficits; Z87.11 Personal history of peptic ulcer disease; Z87.442 Personal history of urinary calculi; Z88.2 Allergy status to sulfonamides; Z88.8 Allergy status to other drugs, medicaments and biological substances; Z56.0 Unemployment, unspecified; Z68.30 Body mass index [BMI] 30.0-30.9, adult; Z79.82 Long term (current) use of aspirin; Y92.89 Other specified places as the place of occurrence of the external cause
CPT/HCPCS: 36415; 70450; 70496; 70498; 70551; 71045; 80053; 80061; 80305; 81003; 82948; 83036; 83735; 83880; 84132; 84484; 85025; 85610; 85730; 87081; 90686; 93306; 97161; 97530; 99285; G0378; J0461; J1644; J1815; J3490; Q9967

== ENCOUNTER 2022-09-05 22:50 | Inpatient (IN) | payer MEDICAID ==
[~2022-09-05] VITALS: Ht 154.9 cm; Wt 95.5 kg
[~2022-09-05 22:50] MED LIST changes: -ALLO100T PO; +ALLO300T8 PO; -ASPI-1265 PO; +ASPI-611 PO; +ATOR20TA66 PO; +CYCL-1 PO; -CYCL-394 PO; -DONE23TA7 PO; +GABA600T13 PO; -ISOS30TA84 PO; +LIRA0.6P2 SQ; +METO-384 PO; -OLAN10TA21 PO; +OLAN5TAB75 PO; +QUET25TA36 PO; -ZOC40T PO
[2022-09-05 23:48] LABS: BASOPHILS # (AUTO) 0.1 X10'3 (0-0.2); BASOPHILS % (AUTO) 0.9 % (0-1); EOSINOPHILS # (AUTO) 0.1 X10'3 (0-0.9); EOSINOPHILS % (AUTO) 0.9 % (0-6); HEMATOCRIT 40.8 % (42.0-52.0); HEMOGLOBIN 13.5 g/dl (14.0-17.9); LYMPHOCYTES # (AUTO) 1.4 X10'3 (1.1-4.8); LYMPHOCYTES % (AUTO) 12.7 % (21-51); MEAN CORPUSCULAR VOLUME 75.6 FL (78-98); MONOCYTES # (AUTO) 0.7 X10'3 (0-0.9); NEUTROPHILS # (AUTO) 8.6 X10'3 (1.8-7.7); NEUTROPHILS % (AUTO) 79.5 % (42-75); PLATELET COUNT 265 X10'3 (140-440); RED BLOOD COUNT 5.39 X10'6 (4.70-6.10); RED CELL DISTRIBUTION WIDTH 15.5 % (11.5-14.5); WHITE BLOOD COUNT 10.9 X10'3 (4.5-11.0)
[2022-09-05] MEDS ORDERED: morphine 4 MG/ML inj SYRINge IV ONE (23:50)
[2022-09-05] MEDS ORDERED: ondansetron/PF 4mg/2ml inj IV ONE (23:50)
[2022-09-05 23:58] LABS: D-DIMER 0.37 MG/L FEU (0-0.50)
[2022-09-06] VITALS (11 sets, daily range): BP systolic 120–139; BP diastolic 68–88
[2022-09-06 00:11] LABS: ALANINE AMINOTRANSFERASE 38 U/L (12-78); ALBUMIN 3.4 G/DL (3.4-5.0); ALBUMIN/GLOBULIN RATIO 1.1 (1.1-1.5); ALKALINE PHOSPHATASE 108 IU/L (46-116); ANION GAP 11 (8-16); ASPARTATE AMINO TRANSFERASE 23 U/L (10-37); BILIRUBIN,TOTAL 0.1 MG/DL (0.1-1.0); BLOOD UREA NITROGEN 12 MG/DL (7-18); BUN/CREATININE RATIO 12.2 (10.0-20.0); CALCIUM 8.4 MG/DL (8.5-10.1); CHLORIDE 98 MMOL/L (99-107); CREATININE 0.98 MG/DL (0.60-1.10); GLUCOSE 383 MG/DL (70-104); MAGNESIUM 1.7 MG/DL (1.5-2.4); POTASSIUM 4.6 MMOL/L (3.5-5.1); SODIUM 134 MMOL/L (135-145); TOTAL CARBON DIOXIDE 25.5 MMOL/L (24-32); TOTAL PROTEIN 6.6 G/DL (6.4-8.2); eGFR 77 ML/MIN
[2022-09-06] MEDS ORDERED: heparin 10,000 units/1 ML INJ IV PRN (00:15)
[2022-09-06] MEDS ORDERED: heparin 10,000 units/1 ML INJ IV ONE ×2 (00:15→00:25)
[2022-09-06] MEDS ORDERED: famotidine/PF 10 mg/ml inj IV ONE (00:20)
[2022-09-06] MEDS ORDERED: mag hydrox/Alum hydrox/simeth 30ml oral suspension PO ONE (00:20)
--- NOTE | 2022-09-06 00:25 | NUR ---
CALLED LAB TO ADD ON PTT/ INR TO BLUE TOP ALREADY DRAWN.
[2022-09-06] MEDS ORDERED: nitroGLYCERIN 0.4mg/hour patch TD ONE (00:28)
[2022-09-06] MEDS ORDERED: potassium Cl 40MEQ/1/2NS 520ml 520 ML IV PRN (00:30)
[2022-09-06] MEDS ORDERED: acetaminophen 325mg tablet PO PRN (00:30)
[2022-09-06] MEDS ORDERED: magnesium Cl slow-release 64mg tablet PO PRN (00:30)
[2022-09-06] MEDS ORDERED: hydrALAZINE 20mg/ml inj. IV PRN (00:30)
[2022-09-06] MEDS ORDERED: magnesium 2GM in 50ml NS 50 ML IV PRN (00:30)
[2022-09-06] MEDS ORDERED: magnesium 4gm in 100ml NS 100 ML IV PRN (00:30)
[2022-09-06] MEDS ORDERED: HYDROcodone/acetaminophen 10/325mg tab PO PRN ×2 (00:30→13:45)
[2022-09-06] MEDS ORDERED: ondansetron/PF 4mg/2ml inj IV PRN ×2 (00:30→13:40)
[2022-09-06] MEDS ORDERED: mag hydrox/Alum hydrox/simeth 30ml oral suspension PO PRN (00:30)
[2022-09-06] MEDS ORDERED: magnesium hydroxide 30ml (MOM) UD suspension PO PRN (00:30)
[2022-09-06] MEDS ORDERED: potassium Cl 20 mEq SR tablet PO PRN ×2 (00:30)
[2022-09-06] MEDS ORDERED: HYDROcodone/acetaminophen 5mg/325mg tablet PO PRN ×2 (00:30→13:45)
[2022-09-06] MEDS ORDERED: morphine 2 MG/ML inj. syringe IV PRN ×2 (00:30)
[2022-09-06 00:37] LABS: APTT 24 SECONDS (22-32)
[2022-09-06] MEDS: heparin 25,000 UNIT/250ml bag 250 ML IV PRN ×2 (00:38→09:14)
--- NOTE | 2022-09-06 02:20 | NUR ---
MD Waller pagebety for critical troponin notification.
[2022-09-06 02:47] LABS: POTASSIUM 5.1 MMOL/L (3.5-5.1)
[2022-09-06] MEDS ORDERED: METO50TA7 PO (02:49)
[2022-09-06] MEDS ORDERED: ALBU18HF2 INH (02:55)
[2022-09-06] MEDS ORDERED: MOME13HF12 INH (02:55)
[2022-09-06] MEDS ORDERED: NITR0.4T51 SL (02:55)
[2022-09-06] MEDS ORDERED: ISOS30TA84 PO (02:57)
[2022-09-06] MEDS ORDERED: ATOR20TA PO (02:59)
[2022-09-06] MEDS ORDERED: CYCL-1 PO (03:05)
[2022-09-06] MEDS ORDERED: MEMA10TA PO (03:10)
--- NOTE | 2022-09-06 05:18 | NUR ---
MD HARRELL RETURNED PAGE FOR CRITICAL TROPONIN AT THIS TIME., NO NEW ORDERS RECIEVED.
[2022-09-06 06:00] LABS: CLARITY,URINE CLEAR (Clear); COLOR,URINE YELLOW (Yellow); GLUCOSE, URINE >=1000 mg/dl (Neg); KETONES,URINE NEGATIVE (Neg); LEUKOCYTE ESTERASE ,URINE NEGATIVE (Neg); NITRITES, URINE NEGATIVE (Neg); OCCULT BLOOD,URINE NEGATIVE (Neg); PH,URINE 6.5 (4.8-8.0); PROTEIN,URINE NEGATIVE (Neg); UROBILINOGEN,URINE 0.2 E.U/dL (0.2-1.0)
[2022-09-06 06:08] LABS: URINE AMPHETAMINE SCREEN NEGATIVE (Neg); URINE BARBITUATE SCREEN POSITIVE (Neg); URINE BENZODIAZEPINES SCREEN NEGATIVE (Neg); URINE CANNABINOID SCREEN POSITIVE (Neg); URINE COCAINE SCREEN NEGATIVE (Neg); URINE METHADONE SCREEN NEGATIVE (Neg); URINE OPIATE SCREEN POSITIVE (Neg); URINE PHENCYCLIDINE SCREEN NEGATIVE (Neg)
[2022-09-06 06:18] LABS: UA COLLECTION TYPE NON-SPECIFIED
[2022-09-06 06:25] LABS: BACTERIA,URINE NONE SEEN /HPF (Neg); MUCUS STRANDS NONE SEEN /LPF (Neg); RBC,URINE 0-2 /HPF (0-2); SQUAMOUS EPITHELIAL CELL,UR NONE SEEN /LPF (FEW); WBC,URINE 0-4 /HPF (0-4)
[2022-09-06] MEDS: K and/or MAG REPLACEMENT MC SCH ×2 (08:00→20:00)
[2022-09-06] MEDS ORDERED: enoxaparin 40mg/0.4ml syringe SUBCUT SCH (08:00)
[2022-09-06] MEDS: docusate sod 100mg capsule PO SCH ×2 (08:00→20:46)
[2022-09-06] MEDS ORDERED: nitroGLYCERIN 0.4mg SUBLingual tab SL PRN ×2 (09:30→13:45)
[2022-09-06] MEDS ORDERED: albuterol 2.5 MG/3 ML nebule NEB PRN (09:30)
[2022-09-06] MEDS ORDERED: cyclobenzaprine 10mg tablet PO PRN (09:30)
[2022-09-06] MEDS ORDERED: iohexol 350MG/ML 100ml bottle IV ONE (11:27)
[2022-09-06] MEDS ORDERED: midazolam 1 mg/ML 2ml injection ONE (11:27)
[2022-09-06] MEDS ORDERED: heparin 1,000unit/ml 10ml vial 0 ML ONE (11:27)
[2022-09-06] MEDS ORDERED: LIDOcaine 1% 30ml preserv. free vial ONE (11:27)
[2022-09-06] MEDS ORDERED: fentaNYL/PF 50MCG/1 ML 2ML syringe ONE (11:27)
[2022-09-06] MEDS ORDERED: MESSAGE TO PHARMACY PO ONE (11:55)
[2022-09-06] MEDS ORDERED: glucagon, human recombinant 1mg kit SUBCUT PRN (11:55)
[2022-09-06] MEDS ORDERED: DEXTROSE 15 GM of carb/4 tabs (each vial/BOTTLE has 4 tablets) PO PRN ×2 (11:55)
--- NOTE | 2022-09-06 12:08 | NUR ---
CALLED PCU TO GIVE REPORT ON PT, NIKOLAY WAS IN ANOTHER ROOM. SAID SHE WOULD CALL BACK FOR REPORT. PT UP TO [facility] ASSOCIATE.
[2022-09-06] MEDS ORDERED: iohexol 350 MG/ML 50ML vial IV ONE (12:28)
[2022-09-06] MEDS: gabapentin 300mg capsule PO SCH ×2 (13:00→20:48)
[2022-09-06] MEDS ORDERED: proCHLORperazine 10 MG/2 ml inj IV PRN (13:45)
[2022-09-06] MEDS ORDERED: OXAZEpam 15mg capsule PO PRN (13:45)
[2022-09-06 15:27] LABS: CHOL/HDL RATIO 2.7 (0.00-4.99); CHOLESTEROL 114 MG/DL (0-200); HDL CHOLESTEROL 43 MG/DL (35-60); LDL CHOLESTEROL 55 MG/DL (50-100); TRIGLYCERIDES 116 MG/DL (20-135)
[2022-09-06 15:28] LABS: HEMOGLOBIN A1C 9.4 % (4.5-6.2)
[2022-09-06] MEDS: QUEtiapine 25mg tablet PO SCH (16:00)
[2022-09-06] MEDS ORDERED: LIRAGLUTIDE 0.6 MG/0.1 ML PEN.INJCTR SQ SCH (18:00)
[2022-09-06] MEDS: budesonide 0.5mg/2ml UD nebule IH SCH (19:50)
[2022-09-06] MEDS: albuterol 2.5 MG/3 ML nebule NEB SCH (19:50)
[2022-09-06 19:52] LABS: CREATININE 0.76 MG/DL (0.60-1.10); eGFR > 90 ML/MIN
[2022-09-06] MEDS: ranolazine 500mg SR tablet (Q12H) PO SCH (20:00)
[2022-09-06] MEDS: memantine 5mg tablet PO SCH (20:47)
[2022-09-06] MEDS: ticagrelor 90mg tablet PO SCH (20:47)
[2022-09-06] MEDS: insulin Lispro (HumaLOG) vial - multi-dose SQ SCH (20:55)
[2022-09-06] MEDS ORDERED: allopurinol 300 MG tablet PO SCH (21:00)
[2022-09-06] MEDS ORDERED: insulin glargine (Lantus) pen - multi-dose SQ SCH (21:00)
[2022-09-06] MEDS ORDERED: primidone 250mg tablet PO SCH (21:00)
[2022-09-06] MEDS ORDERED: traZODone 150mg tablet PO SCH (21:00)
[2022-09-07 03:00] VITALS: BP 130/80
[2022-09-07] MEDS: albuterol 2.5 MG/3 ML nebule NEB SCH ×2 (03:06→08:03)
[2022-09-07 06:00] VITALS: BP 144/78
[2022-09-07 06:10] LABS: BASOPHILS % (AUTO) 0.5 % (0-1); EOSINOPHILS # (AUTO) 0.1 X10'3 (0-0.9); HEMATOCRIT 37.3 % (42.0-52.0); HEMOGLOBIN 12.1 g/dl (14.0-17.9); LYMPHOCYTES # (AUTO) 1.4 X10'3 (1.1-4.8); LYMPHOCYTES % (AUTO) 17.9 % (21-51); MEAN CORPUSCULAR HEMOGLOBIN 24.3 PG (27.0-31.0); MEAN CORPUSCULAR HGB CONC 32.3 g/dL (33.0-36.5); MEAN CORPUSCULAR VOLUME 75.2 FL (78-98); MEAN PLATELET VOLUME 7.9 FL (7.4-10.4); MONOCYTES # (AUTO) 0.6 X10'3 (0-0.9); MONOCYTES % (AUTO) 7.9 % (2-12); NEUTROPHILS # (AUTO) 5.7 X10'3 (1.8-7.7); NEUTROPHILS % (AUTO) 72.7 % (42-75); PLATELET COUNT 210 X10'3 (140-440); RED BLOOD COUNT 4.96 X10'6 (4.70-6.10); RED CELL DISTRIBUTION WIDTH 15.2 % (11.5-14.5); WHITE BLOOD COUNT 7.8 X10'3 (4.5-11.0)
[2022-09-07 06:20] LABS: eGFR > 90 ML/MIN
[2022-09-07 06:24] LABS: ALANINE AMINOTRANSFERASE 47 U/L (12-78); ALBUMIN 2.9 G/DL (3.4-5.0); ALKALINE PHOSPHATASE 91 IU/L (46-116); ANION GAP 5 (8-16); ASPARTATE AMINO TRANSFERASE 46 U/L (10-37); BILIRUBIN,TOTAL 0.2 MG/DL (0.1-1.0); BLOOD UREA NITROGEN 12 MG/DL (7-18); CALCIUM 8.4 MG/DL (8.5-10.1); CHLORIDE 99 MMOL/L (99-107); CHOL/HDL RATIO 3.4 (0.00-4.99); CHOLESTEROL 123 MG/DL (0-200); GLUCOSE 229 MG/DL (70-104); HDL CHOLESTEROL 36 MG/DL (35-60); LDL CHOLESTEROL 62 MG/DL (50-100); POTASSIUM 4.1 MMOL/L (3.5-5.1); SODIUM 133 MMOL/L (135-145); TOTAL CARBON DIOXIDE 29.2 MMOL/L (24-32); TOTAL PROTEIN 5.7 G/DL (6.4-8.2); TRIGLYCERIDES 175 MG/DL (20-135); eGFR > 90 ML/MIN
--- NOTE | 2022-09-07 06:53 | NUR ---
Patient in room PCU 3012A. I have received report from Luciana Goddard LVN and had the opportunity to ask questions and assume patient care. Pt laying low fowlers in bed and is resting comfortably. Pt on RA. No s/s of distress. Pt declines c/o pain at this time. BLL, call light wihtin reach, frequently used items in reach, frequent rounding, replenishment associate socks on. WIll continue to monitor.
--- NOTE | 2022-09-07 07:01 | NUR ---
This RN evaluated and agrees w/the MILITARY PAY CLERK's physical assessment f/this patient.
[2022-09-07] MEDS ORDERED: pantoprazole 40mg Tablet.DR PO SCH (07:30)
[2022-09-07] MEDS: gabapentin 300mg capsule PO SCH (07:43)
[2022-09-07] MEDS: ticagrelor 90mg tablet PO SCH (07:43)
[2022-09-07] MEDS: QUEtiapine 25mg tablet PO SCH (07:44)
[2022-09-07] MEDS: memantine 5mg tablet PO SCH (07:44)
[2022-09-07] MEDS: docusate sod 100mg capsule PO SCH (07:47)
[2022-09-07] MEDS ORDERED: losartan 25mg tablet PO SCH (08:00)
[2022-09-07] MEDS: ranolazine 500mg SR tablet (Q12H) PO SCH (08:00)
[2022-09-07] MEDS ORDERED: metoprolol succinate 25mg (24-HOUR) SR. Tablet PO SCH (08:00)
[2022-09-07] MEDS ORDERED: aspirin 81mg, enteric-coated 1 TAB TABLET.DR PO SCH (08:00)
[2022-09-07] MEDS ORDERED: atorvastatin 20mg tablet PO SCH (08:00)
[2022-09-07] MEDS ORDERED: isosorbide mononitrate 30mg tab.SR.24H PO SCH (08:00)
[2022-09-07] MEDS: budesonide 0.5mg/2ml UD nebule IH SCH (08:03)
[2022-09-07] MEDS: K and/or MAG REPLACEMENT MC SCH (08:20)
[2022-09-07] MEDS: insulin Lispro (HumaLOG) vial - multi-dose SQ SCH (09:21)
[2022-09-07] MEDS ORDERED: RANO500T6 PO (10:36)
[2022-09-07] MEDS ORDERED: ISOS30TA84 PO (10:36)
[2022-09-07] MEDS ORDERED: TICA90TA PO (10:36)
[2022-09-07 11:00] VITALS: BP 164/55
--- NOTE | 2022-09-07 12:10 | NUR ---
Pt DC'd to personal vehicle. Family member driving. PIV to L wrist removed tip intact, PIV to LFA removed tip intact no c/o pain. VSS, Pt afebrile, no issues with medication. Discharge education provided. All discharge questions answered. ALL belongings left with Pt.
[2022-09-08] MEDS ORDERED: METFORMIN HCL 1000 MG PO SCH (17:00)
== END 2022-09-07 12:13 | disposition home or self-care (01) | DRG 190 ==
LOC: ER 22:51 → ED HOLD 09-06 00:33 → PCU 3S 09-06 13:00 → ORTHO 4S 09-07 07:33 → PCU 3S 09-07 07:55
PROVIDERS: ADMIT Internal Medicine; ATTEND Family Medicine
PROC: 4A023N7 Measurement of Cardiac Sampling and Pressure, Left Heart, Percutaneous Approach (ICD-10-PCS; principal; 2022-09-06)
PROC: B2111ZZ Fluoroscopy of Multiple Coronary Arteries using Low Osmolar Contrast (ICD-10-PCS; 2022-09-06)
PROC: B3101ZZ Fluoroscopy of Thoracic Aorta using Low Osmolar Contrast (ICD-10-PCS; 2022-09-06)
PROC: B2131ZZ Fluoroscopy of Multiple Coronary Artery Bypass Grafts using Low Osmolar Contrast (ICD-10-PCS; 2022-09-06)
PROC: B3121ZZ Fluoroscopy of Left Subclavian Artery using Low Osmolar Contrast (ICD-10-PCS; 2022-09-06)
PROC: B31N1ZZ Fluoroscopy of Other Upper Arteries using Low Osmolar Contrast (ICD-10-PCS; 2022-09-06)
DX: I21.4 Non-ST elevation (NSTEMI) myocardial infarction (principal); E11.9 Type 2 diabetes mellitus without complications; F03.A0 Unspecified dementia, mild, without behavioral disturbance, psychotic disturbance, mood disturbance, and anxiety; I25.810 Atherosclerosis of coronary artery bypass graft(s) without angina pectoris; E78.00 Pure hypercholesterolemia, unspecified; G89.29 Other chronic pain; K21.9 Gastro-esophageal reflux disease without esophagitis; R09.02 Hypoxemia; M54.9 Dorsalgia, unspecified; F31.9 Bipolar disorder, unspecified; I10 Essential (primary) hypertension; F41.9 Anxiety disorder, unspecified; J44.9 Chronic obstructive pulmonary disease, unspecified; I25.10 Atherosclerotic heart disease of native coronary artery without angina pectoris; I25.2 Old myocardial infarction; Z79.82 Long term (current) use of aspirin; Z79.899 Other long term (current) drug therapy; Z82.3 Family history of stroke; Z82.49 Family history of ischemic heart disease and other diseases of the circulatory system; Z83.3 Family history of diabetes mellitus; Z85.820 Personal history of malignant melanoma of skin; Z86.73 Personal history of transient ischemic attack (TIA), and cerebral infarction without residual deficits; Z87.11 Personal history of peptic ulcer disease; Z87.442 Personal history of urinary calculi; Z88.2 Allergy status to sulfonamides; Z88.8 Allergy status to other drugs, medicaments and biological substances; Z95.5 Presence of coronary angioplasty implant and graft; Z56.0 Unemployment, unspecified; Z91.018 Allergy to other foods
CPT/HCPCS: 36415; 71045; 80053; 80061; 80305; 81001; 82565; 82948; 83036; 83735; 83880; 84132; 84145; 84443; 84484; 85025; 85379; 85610; 85730; 93005; 93306; 93459; 94640; 94760; 99152; 99153; 99285; A6258; G0378; J1644; J1815; J2250; J2270; J2405; J3010; J3490; Q9967